=== PATIENT | male | born 1980 | race Caucasian/White ===

== ENCOUNTER → 2019-03-12 15:53 | Outpatient (CLI) | payer OTHER, SELFPAY ==
--- NOTE | 2019-03-12 | DI.MRI.S_ITS ---
PROCEDURE: MR HEAD/BRAIN WO/W CON INDICATIONS: left sided facial pain/numbness, neck pain TECHNIQUE: Noncontrast axial T1 spin echo, axial T2 fast spin echo, sagittal and axial FLAIR, coronal T2 fast spin echo, axial gradient echo, axial diffusion and ADC through the brain. After the administration of contrast, axial and coronal 3D VIBE or T1 spin echo with fat saturation through the brain. COMPARISON: None. FINDINGS: Image quality: Excellent. CSF Spaces: Basal cisterns are patent. No extra-axial fluid collections. Ventricles are normal in size and shape. Brain: No midline shift. No intracranial bleeds or masses. No abnormal intracranial enhancement. The brainstem appears normal. Diffusion-weighted images demonstrate no acute ischemic insults. No chronic ischemic insults. Normal intravascular flow voids are present. Skull and face: Calvarial marrow is normal in signal. Orbits appear normal. Minimal left maxillary sinus mucosal thickening. IMPRESSION: No abnormal enhancement. No evidence of acute ischemia. Minimal left maxillary sinus disease. Dictated by: Edvin Fagan M.D. on 03/12/2019 at 17:50 Approved by: Edvin Fagan M.D. on 03/12/2019 at 17:55
== END ==
PROVIDERS: PCP Internal Medicine; Visit Provider Internal Medicine
DX: R51 Headache (principal); M54.2 Cervicalgia
CPT/HCPCS: 70553; A9579

== ENCOUNTER → 2019-06-19 08:14 | Outpatient (CLI) | payer OTHER, SELFPAY ==
--- NOTE | 2019-06-19 | DI.CT.S_ITS ---
PROCEDURE: CT SINUS SCREEN WO CON INDICATIONS: Chronic pansinusitis TECHNIQUE: Noncontrast 3.0 mm axial images acquired from the frontal sinuses to the mid-sella, with coronal and sagittal reformats. For radiation dose reduction, the following was used: automated exposure control, adjustment of mA and/or kV according to patient size. COMPARISON: None. FINDINGS: Image quality: Excellent. Maxillary Sinuses: No bony remodeling or destruction. Moderate bilateral mucosal thickening. Air-fluid levels bilaterally. Ethmoid Air Cells: No bony remodeling or destruction. Severe bilateral mucosal thickening. Sphenoid Sinuses: No bony remodeling or destruction. Mild bilateral mucosal thickening. Frontal Sinuses: No bony remodeling or destruction. Mild bilateral mucosal thickening. Ostiomeatal Complexes: Ostiomeatal complexes are obstructed. No Moe cells. Miscellaneous: Visualized intra-orbital contents are normal. No norm bullosa or paradoxical turbinate curvature. Mild leftward nasal septal deviation. IMPRESSION: 1. Moderate to severe acute superimposed on chronic pansinusitis bilaterally. Dictated by: Sreekanth Vega M.D. on 06/19/2019 at 9:16 Approved by: Sreekanth Vega M.D. on 06/19/2019 at 9:22
== END ==
PROVIDERS: PCP Internal Medicine; Visit Provider Otolaryngology
DX: J01.40 Acute pansinusitis, unspecified (principal); J32.4 Chronic pansinusitis
CPT/HCPCS: 70486

== ENCOUNTER → 2024-05-19 16:58 | Outpatient (CLI) | payer OTHER, SELFPAY ==
--- NOTE | 2024-05-19 17:02 | DI.RAD.S_ITS ---
PROCEDURE: XR CHEST 3V INDICATIONS: WHEEZING TECHNIQUE: 2 views of the chest were acquired. COMPARISON: None. FINDINGS: Surgical changes and devices: None. Lungs and pleura: Lungs are clear. No pleural effusions or pneumothorax. Mediastinum: Mediastinal contours are normal. Heart size is normal. Bones and chest wall: No suspicious bony abnormalities. Soft tissues appear unremarkable. IMPRESSION: No acute cardiopulmonary abnormality is seen. Dictated by: Bam Fernandez M.D. on 05/20/2024 at 13:40 Approved by: Bam Fernandez M.D. on 05/20/2024 at 13:40
== END ==
PROVIDERS: PCP Registered Nurse; Referring Provider Registered Nurse; Visit Provider Registered Nurse
DX: J32.1 Chronic frontal sinusitis (principal); R06.2 Wheezing
CPT/HCPCS: 71047

== ENCOUNTER → 2024-06-04 14:41 | Outpatient (CLI) | payer OTHER, SELFPAY | PROVIDERS: PCP Registered Nurse; Referring Provider Registered Nurse; Visit Provider Registered Nurse | DX: R06.02 Shortness of breath (principal); Z87.891 Personal history of nicotine dependence; Z86.16 Personal history of COVID-19; Z57.2 Occupational exposure to dust; Z57.39 Occupational exposure to other air contaminants | CPT/HCPCS: 94060; 94726; 94729 ==

== ENCOUNTER → 2024-06-29 07:50 | Outpatient (CLI) | payer OTHER, SELFPAY ==
[2024-06-29 08:57] LABS: Add Manual Diff / Slide Review NO; Basophils Absolute Auto 100 /uL (0-100); Basophils Percent Auto 1.1 % (0-2); Eosinophils Absolute Auto 600 /uL (0-450); Eosinophils Percent Auto 9.6 % (2-4); Hematocrit 45.8 % (41-53); Hemoglobin 15.7 g/dL (13.5-17.5); Lymphocytes Absolute Auto 1900 /uL (1100-4500); Lymphocytes Percent Auto 28.1 % (25-40); Mean Corpuscular HGB Conc 34.4 % (30-36); Mean Corpuscular Hemoglobin 29.7 PG (26-34); Mean Corpuscular Volume 86.3 fL (80-100); Monocytes Absolute Auto 700 /uL (0-900); Monocytes Percent Auto 9.9 % (3-14); Neutrophils Absolute Auto 3400 /uL (1500-7000); Neutrophils Percent Auto 51.3 % (50-75); Platelet Count 315 X10^3/uL (150-400); Red Cell Distribution Width 12.8 % (11.6-14.8); White Blood Cell Count 6.7 X10^3/uL (4.5-11.0)
[2024-06-29 09:24] LABS: Alanine Aminotransferase 34 IU/L (<50); Albumin 4.6 g/dL (3.5-5.0); Albumin Globulin Ratio 1.9 (1.0-2.8); Alkaline Phosphatase 56 U/L (38-126); Aspartate Aminotransferase 34 IU/L (17-59); BUN Creatinine Ratio 17.2 (6-22); Bilirubin Total 0.9 mg/dL (0.2-1.3); Blood Urea Nitrogen 17 mg/dL (9-20); Calcium 9.3 mg/dL (8.4-10.2); Carbon Dioxide 26 mmol/L (22-32); Chloride 104 mmol/L (98-107); Cholesterol 250 mg/dL (140-199); Estimated Glomerular Filt Rate > 60 mL/min (>60); Globulin 2.4 g/dL (1.7-4.1); Glucose 96 mg/dL (70-100); HDL Cholesterol 54 mg/dL (40-60); HEMOLYSIS < 15 (0-50); LDL Cholesterol Calculated 172 mg/dL (<100); Potassium 3.8 mmol/L (3.4-5.1); Sodium 138 mmol/L (137-145); Triglycerides 121 mg/dL (35-150)
[2024-06-29 09:38] LABS: Free T4, Direct Thyroxine 1.15 ng/dL (0.78-2.19)
[2024-06-29 09:52] LABS: Thyroid Stimulating Hormone 1.53 uIU/mL (0.47-4.68)
[2024-06-29 15:34] LABS: Hep C Virus Ab w/Reflex Quant NEGATIVE s/c (NEGATIVE)
== END ==
PROVIDERS: PCP Registered Nurse; Referring Provider Registered Nurse; Visit Provider Registered Nurse
DX: Z00.00 Encounter for general adult medical examination without abnormal findings (principal); Z13.29 Encounter for screening for other suspected endocrine disorder; Z13.0 Encounter for screening for diseases of the blood and blood-forming organs and certain disorders involving the immune mechanism; Z13.220 Encounter for screening for lipoid disorders; Z11.59 Encounter for screening for other viral diseases
CPT/HCPCS: 36415; 80053; 80061; 84439; 84443; 85025; 86803